=== PATIENT | female | born 1960 | race Caucasian/White ===

== ENCOUNTER 2018-01-09 14:23 | Emergency (ER) | payer OTHER ==
[2016-07-03 13:37] VITALS: BMI 32.1
[~2018-01-09 14:23] MED LIST: ALPHAGAN 0.2%5 ML RIGHT EYE; ANUSOL-HC25 MG RC; COSOPT EYE DROPS5 ML EACH EYE; DEXILANT60 MG PO; DILAUDID2 MG PO; PHENERGAN25 M1 PO; REGLAN10 MG PO; TRAVATAN Z2.5 ML EACH EYE
[2018-01-09 15:43] LABS: BASOPHILS 1.1 % (0-2); EOSINOPHILS 2.3 % (0-7); HEMATOCRIT 41.4 % (36.0-48.0); HEMOGLOBIN 13.8 g/dL (12-16); IMMATURE GRANULOCYTES 0.2 % (0-5); LYMPHOCYTES 47.4 % (15-50); MCHC 33.3 g/dL (31.0-37.0); MEAN PLATELET VOLUME 9.8 fL (7.4-10.4); MONOCYTES 6.6 % (2-11); NEUTROPHILS 42.4 % (40-80); PLATELET COUNT 212 10x3/uL (130-400); RBC 4.93 10x6/uL (4.00-5.40); RDW 13.1 % (11.5-14.5); WBC 5.6 10x3/uL (4.8-10.8)
[2018-01-09 16:00] LABS: ALBUMIN 4.2 g/dL (3.4-5.0); ALKALINE PHOSPHATASE 35 U/L (46-116); ALT (SGPT) 44 U/L (10-68); BILIRUBIN - TOTAL 0.63 mg/dL (0.2-1.3); CALC OSMOLALITY 272 mosm/kg (275-300); CALCIUM 9.5 mg/dL (8.5-10.1); CHLORIDE - SERUM 100 mmol/L (98-107); CREATININE - SERUM 0.5 mg/dL (0.6-1.3); GLUCOSE 88 mg/dL (74-106); PROTEIN - SERUM 7.7 g/dL (6.4-8.2); SODIUM 138 mmol/L (136-145); UREA NITROGEN 6 mg/dL (7-18); eGFR NON AFRICAN AMERICAN > 90 mL/min (90-120)
[2018-01-09 16:09] LABS: THYROID STIMULATING HORMONE 0.34 uIU/mL (0.36-3.74)
== END 2018-01-09 20:30 | disposition home or self-care (01) ==
LOC: D.ER 14:23
PROVIDERS: Physician Assistant
DX: K59.00 Constipation, unspecified (principal); Z85.3 Personal history of malignant neoplasm of breast

== ENCOUNTER 2018-04-16 08:03 | Emergency (ER) | payer OTHER ==
[~2018-04-16] VITALS: Ht 172.7 cm; Wt 90.9 kg
[2018-04-16 08:18] VITALS: Ht 172.7 cm; Wt 90.9 kg
[2018-04-16 09:39] LABS: BASOPHILS 0.8 % (0-2); EOSINOPHILS 2.2 % (0-7); HEMATOCRIT 40.1 % (36.0-48.0); HEMOGLOBIN 13.3 g/dL (12-16); LYMPHOCYTES 42.6 % (15-50); MCH 28.2 pg (26.0-34.0); MCHC 33.2 g/dL (31.0-37.0); MCV 85.1 fL (80.0-100.0); MONOCYTES 6.5 % (2-11); NEUTROPHILS 47.9 % (40-80); PLATELET COUNT 236 10x3/uL (130-400); RBC 4.71 10x6/uL (4.00-5.40); RDW 12.6 % (11.5-14.5)
[2018-04-16 10:04] LABS: ALBUMIN 3.9 g/dL (3.4-5.0); ALKALINE PHOSPHATASE 28 U/L (46-116); ALT (SGPT) 31 U/L (10-68); BILIRUBIN - TOTAL 0.41 mg/dL (0.2-1.3); CALC OSMOLALITY 278 mosm/kg (275-300); CALCIUM 9.3 mg/dL (8.5-10.1); CARBON DIOXIDE 30.5 mmol/L (21.0-32.0); CHLORIDE - SERUM 105 mmol/L (98-107); CREATININE - SERUM 0.6 mg/dL (0.6-1.3); GLUCOSE 86 mg/dL (74-106); POTASSIUM - SERUM 3.9 mmol/L (3.5-5.1); PROTEIN - SERUM 7.3 g/dL (6.4-8.2); SODIUM 141 mmol/L (136-145); UREA NITROGEN 11 mg/dL (7-18); eGFR NON AFRICAN AMERICAN > 90 mL/min (90-120)
[2018-04-16 10:06] LABS: AMYLASE - SERUM 54 U/L (25-115); LIPASE 137 U/L (73-393); TROPONIN-I < 0.017 ng/mL (0.000-0.060)
[2018-04-16 10:45] LABS: AMORPHOUS SEDIMENT >1+ /lpf (NONE SEEN); APPEARANCE HAZY (CLEAR); BACTERIA MODERATE /hpf (NONE SEEN); BILIRUBIN NEGATIVE (NEGATIVE); COLOR YELLOW (YELLOW); EPITHELIAL CELLS 0-5 /hpf (0-5); GLUCOSE NEGATIVE (NEGATIVE); KETONE NEGATIVE (NEGATIVE); MUCUS <1+ /lpf (NONE SEEN); NITRITE NEGATIVE (NEGATIVE); PROTEIN NEGATIVE (NEGATIVE); UROBILINOGEN NORMAL (NORMAL); WHITE CELLS - URINE OCC /hpf (0-5)
[2018-04-16 12:52] LABS: PROTIME 12.8 SECONDS (11.6-15.0)
[2018-04-16 13:01] LABS: D-DIMER-QUANTITATIVE < 0.27 ug/mLFEU (0.20-0.54)
[2018-04-16] MEDS ORDERED: PROTONIX40 MG PO (16:57)
[2018-04-16 17:31] VITALS: BP 116/69
== END 2018-04-16 17:31 | disposition home or self-care (01) ==
LOC: D.ER 08:03
PROVIDERS: Family Medicine
DX: R07.9 Chest pain, unspecified (principal); K21.9 Gastro-esophageal reflux disease without esophagitis; R00.1 Bradycardia, unspecified; H40.9 Unspecified glaucoma; E07.9 Disorder of thyroid, unspecified; Z85.828 Personal history of other malignant neoplasm of skin; Z85.3 Personal history of malignant neoplasm of breast

== ENCOUNTER → 2018-05-05 08:39 | Outpatient (CLI) | payer OTHER ==
[2018-04-16 08:18] VITALS: BMI 30.4
[~2018-05-05 08:39] MED LIST changes: +PROTONIX40 MG PO
== END | disposition home or self-care (01) ==
LOC: D.RAD 08:39
DX: R07.9 Chest pain, unspecified (principal)

== ENCOUNTER 2018-07-06 05:55 | Day surgery (SDC) | payer OTHER ==
[~2018-07-06] VITALS: Ht 172.7 cm; Wt 95.5 kg
--- NOTE | ~2018-07-06 | OP ---
PATIENT NAME: BECKY GALLEGO MEDICAL RECORD: [id number] :56 LOCATION:D.OPS ADMISSION DATE: SURGEON: JAMAR LIN MD DATE OF OPERATION: 07/06/2018 PREOPERATIVE DIAGNOSIS: GERD. POSTOPERATIVE DIAGNOSIS: GERD. PROCEDURE: 1. EGD with biopsy. 2. Deployment of Hurtado pH probe. SURGEON: Jamar Lin MD REPORT OF PROCEDURE: An Olympus endoscope was advanced through the patient's mouth and esophagus. We passed through the stomach and into the duodenum. We encountered the second portion of the duodenum and there was no sign of any inflammatory changes, masses, ulcerations, or lesions. As we pulled the scope back, we inspected the antrum and again no masses, lesions, or ulcerations were seen. A biopsy was taken in the distal antrum and sent off for permanent specimen. We inspected the remainder of the stomach, there were some hyperplastic polyps that were present throughout the stomach, but no signs of any concerning lesions. As we did a retroflex view, the patient's previous Arnulfo wrap was noted to be intact and wrapped in 360-degree fashion. It appeared to rest in good position and there was no sign of a hiatal hernia. We pulled back a little further and was at the GE junction at the Z line, which was resting at about 52 cm at the teeth. The Z-line appeared to be fairly clean with no signs of any ulcerations or lesions present. The Z line was straight. We took a biopsy at the Z line and sent this off for permanent specimen. At this point, we pulled the scope back and inspected the remainder of the esophagus, which appeared to have no signs of any inflammatory changes, masses, or lesions. The scope was completely removed and Hurtado pH probe was inserted. Once it was noted to be inside the esophagus then we placed the endoscope back in. We pulled the Hurtado pH probe back to 6 cm from the Z line and it was deployed appropriately. After deployment, we inspected with the endoscope and can see that the probe was in good position in the distal esophagus. At this point, the scope and insufflation were removed. COMPLICATIONS: None. CONDITION: Stable. ANESTHESIA: TIVA. BLOOD LOSS: Minimal. 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
[2018-07-06 06:19] LABS: BASOPHILS 0.7 % (0-2); EOSINOPHILS 2.8 % (0-7); HEMATOCRIT 39.6 % (36.0-48.0); HEMOGLOBIN 13.2 g/dL (12-16); IMMATURE GRANULOCYTES 0.2 % (0-5); MCH 28.3 pg (26.0-34.0); MCHC 33.3 g/dL (31.0-37.0); MCV 84.8 fL (80.0-100.0); MONOCYTES 6.3 % (2-11); PLATELET COUNT 200 10x3/uL (130-400); RBC 4.67 10x6/uL (4.00-5.40); WBC 5.4 10x3/uL (4.8-10.8)
[2018-07-06 06:31] LABS: CALC OSMOLALITY 280 mosm/kg (275-300); CALCIUM 9.5 mg/dL (8.5-10.1); CARBON DIOXIDE 29.5 mmol/L (21.0-32.0); CHLORIDE - SERUM 106 mmol/L (98-107); CREATININE - SERUM 0.5 mg/dL (0.6-1.3); GLUCOSE 110 mg/dL (74-106); POTASSIUM - SERUM 4.2 mmol/L (3.5-5.1); SODIUM 141 mmol/L (136-145); UREA NITROGEN 11 mg/dL (7-18); eGFR NON AFRICAN AMERICAN > 90 mL/min (90-120)
[2018-07-06] MEDS ORDERED: [UNRECOGNIZED DRUG - OTHER] (06:58)
[2018-07-06 07:01] VITALS: BP 103/55; Ht 172.7 cm; Wt 95.5 kg
== END 2018-07-06 09:30 | disposition home or self-care (01) ==
LOC: D.OPS 05:55
PROVIDERS: Surgery
DX: K21.9 Gastro-esophageal reflux disease without esophagitis (principal)